=== PATIENT | female | born 1960 | race Caucasian/White ===

== ENCOUNTER → 2023-08-09 | Outpatient (CLI) | payer OTHER, MEDICARE ==
[2023-08-09 12:31] LABS: BASOPHILS % (AUTO) 1.8 % (0.0-2.0); EOSINOPHILS % (AUTO) 2.2 % (1.0-6.0); HEMATOCRIT 34.7 % (36-46); HEMOGLOBIN 11.6 g/dL (12.0-16.0); LYMPHOCYTES # (AUTO) 1.1 K/uL (1.0-4.8); LYMPHOCYTES % (AUTO) 31.5 % (22.0-44.0); MEAN CORPUSCULAR HGB CONC 33.4 G/dL (31.0-37.0); MEAN CORPUSCULAR VOLUME 96 fL (80-100); MONOCYTES # (AUTO) 0.2 K/uL (0.1-1.0); MONOCYTES % (AUTO) 5.9 % (2.0-9.0); NEUTROPHILS % (AUTO) 58.6 % (40.0-70.0); PLATELET COUNT (AUTO) 242 K/uL (150-450); RED BLOOD CELL COUNT(AUTO) 3.63 MIL/uL (4.00-5.20); RED CELL DISTRIBUTION WIDTH 13.9 % (11.5-14.5); WHITE BLOOD COUNT (AUTO) 3.4 K/uL (4.5-11.0)
[2023-08-09 12:42] LABS: HEMOGLOBIN A1C 4.8 % (3.8-5.6)
[2023-08-09 13:03] LABS: ALANINE AMINOTRANSFERASE 43 U/L (12-78); ALBUMIN 3.5 g/dL (3.4-5.0); ALKALINE PHOSPHATASE 71 U/L (46-116); ANION GAP 6 mmol/L (8-16); ASPARTATE AMINOTRANSFERASE 21 U/L (15-37); BILIRUBIN,TOTAL 0.5 mg/dL (0.1-1.0); CALCIUM, TOTAL 8.7 mg/dL (8.8-10.5); CARBON DIOXIDE 30 mmol/L (22-29); CHLORIDE 103 mmol/L (98-107); CHOL/HDL RATIO 2.7 (3.9-5.7); CHOLESTEROL 166 mg/dL (131-200); CREATININE 0.74 mg/dL (0.60-1.30); FERRITIN 261 ng/mL (8-252); GLOMERULAR FILTR. RATE CALC > 60 mL/min (>60); GLUCOSE,RANDOM 86 mg/dL (70-110); HDL CHOLESTEROL 62 mg/dL (40-60); LDL CHOL (CALC.) 99 mg/dL (0-130); SODIUM SERUM 139 mmol/L (136-145); TOTAL PROTEIN, SERUM 6.5 g/dL (6.4-8.2); TRIGLYCERIDES 25 mg/dL (15-150); UREA NITROGEN, BLOOD 20 mg/dL (7-18)
[2023-08-09 13:06] LABS: % IRON SATURATION 48.2 % (22-44)
[2023-08-09 15:19] LABS: VITAMIN D,TOTAL (25-0H) 81 ng/mL (30-100)
[2023-08-09 15:33] LABS: VITAMIN B12 LEVEL > 2000 pg/mL (211-911)
[2023-08-10 05:07] LABS: PARATHYROID HORMONE INTACT 48 pg/mL (15-65)
[2023-08-10 08:06] LABS: ALBUMIN/CREATININE RATIO <5 mg/g creat (0-29); CREATININE, URINE (mALB) 59.7 mg/dL (Not Estab.)
[2023-08-10 12:32] LABS: FOLATE SERUM > 24.0 ng/mL (5.4-)
== END | disposition home or self-care (01) ==
LOC: LABMN 11:37
PROVIDERS: ATTEND Internal Medicine Geriatric Medicine
DX: Z00.00 Encounter for general adult medical examination without abnormal findings (principal); K91.2 Postsurgical malabsorption, not elsewhere classified; E66.9 Obesity, unspecified; Z98.84 Bariatric surgery status
CPT/HCPCS: 80053; 80061; 82043; 82306; 82570; 82607; 82728; 82746; 83036; 83540; 83550; 83970; 84425; 85025